=== PATIENT | female | born 1965 | race African-American/Black ===

== ENCOUNTER 2023-10-01 13:45 | Emergency (ER) | payer MEDICAID ==
[~2023-10-01] VITALS: Ht 160 cm; Wt 63.5 kg
[~2023-10-01 13:45] MED LIST: AMLO2.5T45 PO; ASPI-1497 PO; HYDR50TA39 PO; LEVE1000 PO; LEVO250T74 MT; LISI-651 PO; OMEP20CA14 PO; SIMV-46 PO; VANC250C5 MT
[2023-10-01 13:53] VITALS: TEMP 98.2; O2SAT 100
[2023-10-01 14:34] LABS: BASOPHILS % 0.6 % (0.0-2.0); HEMATOCRIT. 43.9 % (36.0-48.0); HEMOGLOBIN. 15.3 g/dL (12.0-16.0); LYMPHOCYTES % 17.2 % (20.0-50.0); MEAN CORPUSCULAR HEMOGLOBIN 31.2 pg (28.0-32.0); MEAN CORPUSCULAR HGB CONC 34.9 g/dL (31.0-37.0); MEAN CORPUSCULAR VOLUME 89.4 fL (81.0-99.0); MEAN PLATELET VOLUME 8.9 fl (7.4-10.4); MONOCYTES % 2.1 % (2.0-8.0); NEUTROPHILS % 80.1 % (40.0-76.0); PLATELET 260 x1000/uL (130-400); RED BLOOD CELL COUNT 4.91 mill/uL (4.2-5.4); RED CELL DISTRIBUTION WIDTH 15.4 % (11.6-14.6)
[2023-10-01 14:39] LABS: CHLORIDE 105 mEq/L (98-107); SODIUM 139 mEq/L (136-145)
[2023-10-01 14:40] LABS: CARBON DIOXIDE 25 mEq/L (21-32)
[2023-10-01 14:41] LABS: CALCIUM 9.7 mg/dL (8.7-10.4)
[2023-10-01 14:45] LABS: CREATININE 0.7 mg/dL (0.6-1.0); GLUCOSE 182 mg/dL (70-105)
[2023-10-01 14:46] LABS: TROPONIN I HIGH SENSITIVITY 4 ng/L (3.0-34); UREA NITROGEN BLOOD 8 mg/dL (9-23)
[2023-10-01 14:47] LABS: ALANINE AMINOTRANSFERASE 32 IU/L (10-49); ALBUMIN 5.3 g/dL (3.2-4.8); ASPARTATE AMINOTRANSFERASE 28 IU/L (<34)
[2023-10-01 14:48] LABS: BILIRUBIN DIRECT 0.2 mg/dL (<=3.0); BILIRUBIN TOTAL 0.7 mg/dL (0.1-1.0); PROTEIN TOTAL 8.8 g/dL (6.0-8.3)
[2023-10-01 14:52] LABS: POTASSIUM 2.7 mEq/L (3.5-5.1)
[2023-10-01] MEDS: MORPHINE SULFATE 4 MG/ML INJ (FOR IV/IM USE) IV STA (14:53)
[2023-10-01] MEDS: ONDANSETRON HCL 4MG/2ML INJ IV STA (14:54)
[2023-10-01 15:18] LABS: CLARITY URINE CLEAR (CLEAR); COLOR URINE YELLOW (YELLOW); GLUCOSE URINE 1+ (NEGATIVE); KETONES URINE 3+ (NEGATIVE); LEUKOCYTE ESTERASE URINE NEGATIVE (NEGATIVE); NITRITE URINE NEGATIVE (NEGATIVE); OCCULT BLOOD URINE 2+ (NEGATIVE); PH URINE 6.5 (4.5-8.0); PROTEIN URINE 2+ (NEGATIVE); SPECIFIC GRAVITY URINE 1.021 (1.005-1.030); UROBILINOGEN URINE 0.2 E.U./dL (0.2-1.0)
[2023-10-01] MEDS: POTASSIUM CHLORIDE 20MEQ/PACKET PO ONE (15:44)
[2023-10-01 15:49] LABS: BACTERIA URINE 1+; SQUAMOUS EPITHELIAL CELL URINE FEW /lpf (RARE/1+); WBC URINE 0-2 /hpf (0-2)
[2023-10-01] MEDS: METOCLOPRAMIDE HCL 10MG/2ML VIAL IV ONE (17:33)
[2023-10-01] MEDS: LABETALOL 5MG/ML SYR 20 MG/4 ML SYRINGE IV ONE ×2 (17:34→19:20)
[2023-10-01] MEDS: KCL 10MEQ/50ML PREMIX 50 ML IV ONE (17:35)
[2023-10-01] MEDS: CLONIDINE 0.1MG TABLET PO ONE (19:20)
[2023-10-01] MEDS ORDERED: POTA-205 MT (20:10)
[2023-10-01 20:21] VITALS: BP 198/102; PULSE 64; RESP 15
[2023-10-01] MEDS ORDERED: IOHEXOL-300 100 ML BOTTLE ONE (22:23)
== END 2023-10-01 21:30 | disposition home or self-care (01) ==
LOC: ER 13:45
DX: R11.2 Nausea with vomiting, unspecified (principal); R10.9 Unspecified abdominal pain; I10 Essential (primary) hypertension; Z98.890 Other specified postprocedural states; Z86.73 Personal history of transient ischemic attack (TIA), and cerebral infarction without residual deficits; Z88.0 Allergy status to penicillin
CPT/HCPCS: 80076; 80048; 81003; 83690; 85025; 84484; 36415; 74177; 96365; 96375; 96376; 99285; Q9967; J3490; J2765; J2405; J3480; J2270; Z7610 ×4